=== PATIENT | female | born 1960 | race Caucasian/White ===

== ENCOUNTER 2019-06-24 15:48 | Emergency (ER) | payer OTHER, SELFPAY ==
[2019-06-24 16:04] VITALS: BP 100/68; PULSE 96; RESP 16; TEMP 36.8; O2SAT 99
--- NOTE | 2019-06-24 16:04 | ED.URI ---
HPI - URI/Sore Throat General Chief Complaint: Upper Respiratory Infection Stated Complaint: Pos Flu Time Seen by Provider: 06/24/19 16:06 Source: patient and RN notes reviewed Mode of arrival: ambulatory Limitations: no limitations History of Present Illness HPI Narrative: 58-year-old female with history of heart disease, with pacemaker, presents with concern for flu. She reports a possible heart episode this morning for which she called her general counselor. Her general counselor ordered a blood work, including stat BNP, BMP and influenza swab. Patient [place] blood work, however they were not able to do an influenza swab. She reports this morning having an episode of shortness of breath with chest pain for approximately 20 minutes. She reports she also had nausea that lasted for several hours. She denies any current symptoms. MD elicited complaint: other (Shortness of breath) Related Data Home Medications Medication Instructions Recorded Confirmed carvedilol 3.125 mg PO DAILY 06/24/19 06/24/19 fluticasone propionate 1 mcg INTRANASAL DIRECTED 06/24/19 06/24/19 furosemide 40 mg PO DAILY 06/24/19 06/24/19 spironolactone 25 mg PO DAILY 06/24/19 06/24/19 warfarin 3 mg PO DAILY 06/24/19 06/24/19 Allergies Allergy/AdvReac Type Severity Reaction Status Date / Time Penicillins Allergy Hives Verified 06/24/19 16:10 shellfish derived Allergy Hives Verified 06/24/19 16:10 clarithromycin AdvReac Mild N/V Unverified 08/20/08 14:49 cillins Allergy Intermediate Itching Uncoded 06/24/19 16:10 Review of Systems Review of Systems: Narrative: CONSTITUTIONAL: Denies malaise, chills, sweats, or fever. EYES: Denies visual changes, redness, or discharge. ENT: Denies rhinorrhea, congestion, sinus pain, otalgia and sore throat. CARDIOVASCULAR: Denies chest pain, palpitations, or edema. RESPIRATORY: Reports mild cough. Denies current dyspnea. GASTROINTESTINAL: Denies abdominal pain, nausea, vomiting, diarrhea SKIN: Denies rash or itching. MUSCULOSKELETAL: Denies myalgia. NEUROLOGIC: Denies headache. All systems reviewed & are unremarkable except as noted in HPI and below PMFSH Comments At time of signature, agree with nursing past medical, surgical, social and family history. There is no relevant family history pertinent to the presenting complaint Exam Narrative: Exam Narrative: GENERAL: Well-appearing, well-nourished, and in no acute distress. HEAD: Normocephalic, atraumatic. EYES: PERRLA, conjunctivae clear ENT: Nares clear, turbinates erythematous with clear rhinorrhea. Mucous membranes moist. TM pearly painter with sharp light reflex bilaterally; no tragal tenderness. Oropharynx without erythema or lesions. Tonsils not enlarged and without exudate. NECK: Supple. No lymphadenopathy. CHEST: No respiratory distress. Clear to auscultation. No bony deformities, no asymmetry. Speaks in full sentences. HEART: Irregular rate and rhythm. Soft murmur heard. ABDOMEN: Obese, soft, nontender, normal active bowel sounds. SKIN: Warm, dry, no rash. NEURO: Alert and oriented x3. PSYCH: Normal mood and affect Course Course Emergency Course: Discussed with patient benefits of doing EKG in the express care today, transferring to emergency department for further evaluation of her symptoms. Patient refuses both of these things. Reports she will be cared for by her general counselor, and just needed a flu swab . Anticipatory guidance given. Patient agrees to follow-up as directed and is aware of reasons to seek care at the emergency department. Portions of this record may have been created with voice recognition software Vital Signs Vital signs: Vital Signs Temperature 98.3 F 06/24/19 16:04 Pulse Rate 96 06/24/19 16:04 Respiratory Rate 16 06/24/19 16:04 Blood Pressure 100/68 06/24/19 16:04 Pulse Oximetry 99 06/24/19 16:04 Temperature 98.3 F 06/24/19 16:04 Pulse Rate 96 06/24/19 16:04 Respiratory Rate
== END 2019-06-24 16:32 | disposition home or self-care (01) ==
PROVIDERS: Emergency Provider Nurse Practitioner; PCP Family Medicine
DX: R06.02 Shortness of breath (principal); Z95.0 Presence of cardiac pacemaker
CPT/HCPCS: 87804; 99202; G0463